=== PATIENT | female | born 1960 | race Caucasian/White ===

== ENCOUNTER 2016-06-28 10:18 | Inpatient (IN) | payer OTHER ==
--- NOTE | 2016-06-18 13:55 | HP ---
Admitting History and Physical - Primary Care Physician PCP: Vasile Weaver - Admission Chief Complaint: High risk breast cancer History of Present Illness: 55 year old postmenapausal Ashkenazi female with strong family H/O breast cancer. Her sister was recently diagnosed with a breast cancer at age 49 and has a NF1 mutation. Mammogram 06/2016 [facility] 1 showing right clip and Breast MRI 06/2016 [facility] 2. History Source: Patient Limitations to Obtaining History: No Limitations - Past Medical History Additional Past Medical History: Insomnia - Past Surgical History Past Surgical History: Yes: , Hysterectomy (TAHBSO 02/2014 4 cm benign mass colonoscopy benign), Tonsillectomy Additional Past Surgical History: mastopexy 2012 right core bx 2010 benign elbow surgery - Smoking History Smoking history: Never smoked Have you smoked in the past 12 months: No - Alcohol/Substance Use Hx Alcohol Use: Yes (social 3 per week) Home Medications - Allergies Allergies/Adverse Reactions: Allergies Allergy/AdvReac Type Severity Reaction Status Date / Time No Known Allergies Allergy Verified 06/18/16 13:55 - Home Medications Home Medications (free text): Trazadone Family Disease History - Family Disease History Family Disease History: CA: Father (Lung ca), Mother (33 breast ca/Bile duct ca 66), Sister (49 breast ca NF1 mutation) Other Family History: pat aunt Breast ca 70. Pat GM uterine ca 70. mat aunt Breast ca 40. mat GM gastric ca 60. mat cousin beast ca 50. mat 2nd cousins x2 ovarian ca 75 Physical Examination Constitutional: Yes: Well Nourished Breast(s): Yes: Other (Bilateral mastopexy healed incisions and has A cup no palpable densities or adenopathy) Problem List - Problems (1) At high risk for breast cancer Code(s): Z91.89 - [facility] PERSONAL RISK FACTORS, NOT ELSEWHERE CLASSIFIED Assessment/Plan Bilateral total mastectomies retroareolar biopsies implant and alloderm reconstruction
[2016-06-20 10:08] VITALS: BMI 18.4
[2016-06-28] MEDS ORDERED: PROMETHAZINE HCL 25 MG/1 ML VIAL IVPUSH PRN (10:56)
[2016-06-28] MEDS ORDERED: ONDANSETRON 4 MG/2 ML VIAL IVPUSH PRN (10:56)
[2016-06-28] MEDS ORDERED: LACTATED RINGERS SOLUTION 1,000 ML IV SCH (11:00)
[2016-06-28] MEDS ORDERED: BUPIVACAINE HCL/PF 2.5 MG/ML - 30 ML VIAL IJ ONE (13:20)
[2016-06-28] MEDS ORDERED: DEXAMETHASONE SOD PHOSPHATE/PF 10 MG/ML SDV ONE (13:21)
[2016-06-28] MEDS ORDERED: MIDAZOLAM HCL 2 MG/2 ML SINGLE DOSE VIAL ONE (13:22)
[2016-06-28] MEDS ORDERED: SCOPOLAMINE HYDROBROMIDE 1 PATCH PATCH.TD72 ONE (13:32)
[2016-06-28] MEDS ORDERED: GENTAMICIN SO4 80 MG/2 ML VIAL ONE (13:40)
[2016-06-28] MEDS ORDERED: LIDOCAINE 1%-EPI 1:100,000 30 ML MDV IJ ONE (13:40)
[2016-06-28] MEDS ORDERED: ROCURONIUM BROMIDE 50 MG/5 ML VIAL ONE ×2 (13:49→15:25)
[2016-06-28] MEDS ORDERED: HYDROmorphone HCL/PF 1 MG/ML VIAL (FOR PYXIS CHARGING ONLY) ONE (13:49)
[2016-06-28] MEDS ORDERED: PROPOFOL 20 ML ONE (13:49)
[2016-06-28] MEDS ORDERED: KETOROLAC TROMETHAMINE 30 MG/1 ML VIAL ONE (14:20)
[2016-06-28] MEDS ORDERED: ONDANSETRON 4 MG/2 ML VIAL ONE (14:20)
[2016-06-28] MEDS ORDERED: DEXAMETHASONE SOD PHOSPHATE 4 MG/1 ML VIAL ONE (14:20)
[2016-06-28] MEDS ORDERED: ceFAZolin SODIUM 1 GM VIAL ONE (14:20)
[2016-06-28] MEDS ORDERED: CEFOXITIN SODIUM 1 GM in DEXTROSE 5%-WATER - 100 ML IVPB ONE ×2 (14:30→22:15)
[2016-06-28] MEDS ORDERED: ONDANSETRON 4 MG/2 ML VIAL IVPB PRN (15:51)
[2016-06-28] MEDS ORDERED: ZOLPIDEM TARTRATE 5 MG TABLET PO PRN (15:51)
[2016-06-28] MEDS ORDERED: ACETAMINOPHEN 325 MG TABLET (FP) PO PRN (15:51)
[2016-06-28] MEDS ORDERED: HYDROmorphone *PCA* 10MG/50ML DISP.SYRIN PCA ONE (15:52)
[2016-06-28] MEDS ORDERED: DEXTROSE 5%-0.45% SALINE 1,000 ML IV SCH (16:00)
[2016-06-28] MEDS ORDERED: NEOSTIGMINE METHYLSULFATE 0.5 MG/ML - 10 ML MDV ONE (16:12)
[2016-06-28] MEDS ORDERED: GLYCOPYRROLATE 0.2 MG/1 ML VIAL ONE (16:12)
[2016-06-28] MEDS ORDERED: NALOXONE HCL 0.4 MG/ML VIAL ONE (16:52)
[2016-06-28] MEDS: HYDROmorphone *PCA* 10MG/50ML DISP.SYRIN PCA SCH ×2 (17:27→18:16)
[2016-06-28] MEDS ORDERED: DULoxetine HCL 30 MG CAPSULE.DR (FP) PO SCH (22:00)
[2016-06-28] MEDS: DULoxetine HCL 30 MG CAPSULE.DR (FP) PO SCH ×3 (22:34→23:36)
[2016-06-28] MEDS: traZODone HCL 50 MG TABLET (FP) PO SCH ×3 (22:34→23:36)
[2016-06-29 08:44] LABS: MCH 32.8 pg (25.7-33.7); MCHC 33.8 g/dl (32.0-36.0); MEAN CELL VOLUME 96.9 fl (80-96); MEAN PLT VOLUME 9.8 fl (7.5-11.1); PLATELET COUNT 221 K/MM3 (134-434); RDW 11.9 % (11.6-15.6); WHITE BLOOD COUNT 10.7 K/mm3 (4.0-10.0)
[2016-06-29] MEDS ORDERED: CEFOXITIN SODIUM 1 GM in DEXTROSE 5%-WATER - 100 ML IVPB SCH (09:00)
[2016-06-29] MEDS ORDERED: DOCUSATE SODIUM 100 MG CAPSULE (FP) PO PRN (09:20)
[2016-06-29] MEDS ORDERED: OXYCODONE/APAP 5/325MG COMBO TABLET PO PRN (09:21)
--- NOTE | 2016-06-29 09:26 | PN ---
Progress Note, Physician Chief Complaint: s/p bilateral mastectomy with reconstruction POD#1 History of Present Illness: Patient seen this am and reports good pain control. Tolerating po well. Voiding normally. - Current Medication List Current Medications: Active Medications Acetaminophen (Tylenol -) 650 mg PO Q4H PRN PRN Reason: FEVER Docusate Sodium (Colace -) 100 mg PO BID PRN PRN Reason: CONSTIPATION Duloxetine HCl (Cymbalta -) 60 mg PO HS [facility] Last Admin: 06/28/16 23:36 Dose: 60 mg Fentanyl (Sublimaze Injection -) 50 mcg IVPUSH [id number] PRN PRN Reason: PAIN Stop: 07/01/16 10:57 Lactated Ringer's (Lactated Ringers Solution) 1,000 mls @ 125 mls/hr IV ASDIR MATTHEW Dextrose/Sodium Chloride (D5-1/2ns -) 1,000 mls @ 100 mls/hr IV ASDIR MATTHEW Cefoxitin Sodium 1 gm/ (Dextrose) 100 mls @ 200 mls/hr IVPB Q8H-IV MATTHEW Ondansetron HCl (Zofran Injection) 4 mg IVPB Q6H PRN PRN Reason: NAUSEA AND/OR VOMITING Oxycodone/Acetaminophen (Percocet 5/325 -) 2 combo PO Q6H PRN PRN Reason: PAIN LEVEL 6-10 Trazodone HCl (Desyrel -) 50 mg PO HS [facility] Last Admin: 06/28/16 23:36 Dose: 50 mg Zolpidem Tartrate (Ambien -) 5 mg PO HS PRN PRN Reason: Insomnia - Objective Vital Signs: Vital Signs Temperature 98.3 F 06/29/16 06:00 Pulse Rate 67 06/29/16 06:00 Respiratory Rate 18 06/29/16 06:00 Blood Pressure 90/51 06/29/16 06:00 O2 Sat by Pulse Oximetry (%) 96 06/29/16 06:48 Constitutional: Yes: Well Nourished, Calm Breast(s): Yes: Other (bilateral flaps with good color. Nipple/areola complex with good color. Mild ecchymosis noted. DAVID X4 with serosanginous discharge noted.) Labs: CBC, BMP 06/29/16 07:00 Problem List - Problems (1) At high risk for breast cancer Assessment/Plan: Plan: DC RN INTERNSHIP in the pm and transition to po meds. Teach DAVID monitoring. OOB with assistance. Make appt with Dr. Weaver and Dr. Berrios next week. Code(s): Z91.89 - [facility] PERSONAL RISK FACTORS, NOT ELSEWHERE CLASSIFIED
[2016-06-29] MEDS: CEFOXITIN SODIUM 1 GM in DEXTROSE 5%-WATER - 100 ML IVPB SCH ×2 (10:55→17:33)
--- NOTE | 2016-06-29 12:15 | PN ---
Progress Note (short form) - Note Progress Note: 55F POD1 s/p b/l prophylactic mastectomy under GA-ETT with PECS blocks and dilaudid IV FERMENTER for post-operative pain control. Pt states pain is well contolled, AVSS, reports no anesthetic complications. FERMENTER to be d/c'd later today and pt will be switched to oral pain medication.
[2016-06-29] MEDS: diphenhydrAMINE HCL 25 MG CAPSULE (FP) PO PRN ×2 (13:25→21:26)
[2016-06-29] MEDS: OXYCODONE/APAP 5/325MG COMBO TABLET PO PRN ×2 (16:20→21:26)
[2016-06-29] MEDS ORDERED: PT OWN MED DRAWER 7, Y5N ONE (17:08)
--- NOTE | 2016-06-29 20:57 | OP ---
DATE OF OPERATION: 06/28/2016 PREOPERATIVE DIAGNOSIS: High risk for breast cancer with a strong family history. POSTOPERATIVE DIAGNOSIS: High risk for breast cancer with a strong family history. PROCEDURE: Bilateral total nipple-sparing mastectomies through an inframammary approach with bilateral direct implant reconstruction with AlloDerm. ANESTHESIA: General endotracheal anesthesia. PRIMARY SURGEON: Paul Bhakta MD STOVE INSTALLER: BUFFY Whipple PRIMARY SURGEON FOR THE BILATERAL DIRECT IMPLANT RECONSTRUCTION: Paul Berrios MD with his life enrichment assistant, BUFFY Briscoe. COMPLICATIONS: There were no complications. Briefly, the patient is a 55-year-old G3, P3 postmenopausal white female of Ashkenazi-[place] descent. She has a strong family history with a mother who had breast cancer at age 33 and from bile duct cancer at age 66. Her sister had breast cancer at age 49. A maternal aunt, maternal cousin and two maternal second cousins had cancer. Her maternal grandmother had gastric cancer. Her father had lung cancer. A paternal aunt had breast cancer and her paternal grandmother had uterine cancer. The patient had a recent mammography and MRI in June 2016 which was negative. She was seen in consultation regarding risk reduction for breast cancer. She already had a prophylactic JUANIS-BSO performed in 2013. She had a prior mastopexy in 2011 and had a right breast biopsy in 2009 which was benign. The patient was told she could undergo genetic testing but she did not want to go forward with genetic testing. She felt her risk was very high and wanted to go forward with risk reduction mastectomy. I spoke to her about all risks and complications of the procedure including risks of skin necrosis, nipple loss, hematoma, and infection and she wanted to go forward with the surgery. She was felt to be high risk and was seen by a plastic surgeon preoperatively. She was felt to be a good candidate for direct implant reconstruction. She was brought in for the procedure on June 28, 2016. In the holding area, site verification was made and informed consent was obtained. She was marked preoperatively by the plastic surgeon. She did sign consent for the nipple-sparing mastectomy registry program. She was brought into the operating room and laid on the OR table in the supine position. Venodynes were placed on the lower extremities. She did receive a gram of Mefoxin prior to incision. Both breasts were sterilely prepped and draped in the usual fashion. Inframammary incisions were marked out bilaterally, about 8 cm in length, in the inframammary folds symmetrically bilaterally. The left mastectomy was performed first. An incision was made in the inframammary fold. The skin edges were everted and the breast was retracted inferiorly using [place] clamps. The skin flap was raised using the PEAK radiofrequency device superiorly to the level of the clavicle, medially to the level of the sternum, laterally to the level of the latissimus and inferiorly to the level of the inframammary fold. The breast was taken down off the pectoralis major muscle from inferomedial to superolateral and completely removed intact. It was oriented with a long lateral/short superior suture and weighed to allow for appropriate cosmetic result. The skin flaps were trimmed for good cosmetic result. A retroareolar biopsy is taken underneath the left nipple-areolar complex, sent for frozen section, came back negative, so the left nipple was spared. The wound was copiously irrigated. At this point, the right breast was approached. Again, an inframammary incision was made symmetrically to the right inframammary incision. The skin edge was everted and then the breast was retracting inferiorly using [place] clamps. The skin flap was raised using the PEAK radiofrequency device superiorly to the level of the clavicle, medially to the level of the sternum, laterally to the level of the latissimus and inferiorly to the level of the inframammary fold. The breast was taken down off the pectoralis major muscle using electrocautery from inferomedial to superolateral and completely removed intact. It was oriented with a long lateral/short superior suture and weighed to allow for appropriate cosmetic result. Hemostasis was achieved and the skin flaps were trimmed for good cosmetic result. A retroareolar biopsy was taken underneath the right nipple-areolar complex and sent for frozen section, came back negative and so the right nipple was spared. Hemostasis was achieved and the wound was copiously irrigated with warm sterile saline. The SPY skin perfusion device was used and there was good skin perfusion in both skin flaps and even into the nipple-areolar complexes, even despite her prior mastopexy surgery in 2011. At this point, Dr. Berrios performed bilateral direct implant reconstructions using AlloDerm, which was sutured into the inferolateral aspects of both pectoralis major muscles. Two Rm drains were placed around each implant and brought through separate stab incisions on the lateral skin flaps and secured in place using 3-0 nylon suture. Wounds were all closed by plastic surgery using interrupted 3-0 deep dermal PDS suture and a running 4-0 subcuticular PDS suture. The Rm drains were placed on DAVID soft bulb suction and Mastisol and Steri-Strips were applied over the wounds. She was placed in a surgical bra postoperatively. All sponge and needle counts were correct at the end of the case. She was extubated at the end of the case. ESTIMATED BLOOD LOSS: About 100 mL She was hemodynamically stable throughout. The patient will be recovered in the postanesthesia care unit and then will be admitted postoperatively for wound and pain management. PAUL BHAKTA M.D. [id number]
[2016-06-29] MEDS: traZODone HCL 50 MG TABLET (FP) PO SCH (21:27)
[2016-06-29] MEDS: DULoxetine HCL 30 MG CAPSULE.DR (FP) PO SCH (21:27)
[2016-06-30] MEDS ORDERED: PT OWN MED DRAWER 7, Y5N ONE (01:32)
[2016-06-30] MEDS: CEFOXITIN SODIUM 1 GM in DEXTROSE 5%-WATER - 100 ML IVPB SCH ×2 (01:50→10:00)
[2016-06-30] MEDS: OXYCODONE/APAP 5/325MG COMBO TABLET PO PRN ×2 (05:29→09:00)
[2016-06-30 07:03] VITALS: BP 109/60; PULSE 56; TEMP 98.9
--- NOTE | 2016-06-30 11:37 | DS ---
Physical Examination Vital Signs: Vital Signs Temperature 98.9 F 06/30/16 06:00 Pulse Rate 56 L 06/30/16 06:00 Respiratory Rate 19 06/30/16 06:00 Blood Pressure 109/60 06/30/16 06:00 O2 Sat by Pulse Oximetry (%) 100 06/30/16 05:33 Constitutional: Yes: Well Nourished, No Distress Wound/Incision: Yes: Dressing Dry and Intact (Skin flaps and nipples viable. DAVID drains functioning, serosanguineous effluent.) Labs: CBC, BMP 06/29/16 07:00 Discharge Summary Reason For Visit: GENETIC SUSCEPTIBILITY Current Active Problems At high risk for breast cancer (Acute) Condition: Good - Instructions Diet, Activity, Other Instructions: BREAST SURGERY INSTRUCTIONS Rafael Weaver M.D., DIANELYS Weaver M.D., DIANELYS Vaughan M.D., FACS 1. Please call the office at to make a follow up appointment with your surgeon. This number can be also used for any urgent issues you may have. 2. Call us immediately if any of the following occur: *Bleeding from the incision or drain site (a small amount is normal) *Fever or chills *Redness and worsening tenderness around the surgical site *Drainage of pus or fluid from the incision or drain site 3. You may change the surgical dressing two (2) days after your surgery, and may shower then. If you have drains, you may shower after they have been removed, until then take a sponge bath. 4. It is normal for there to be some bruising and tenderness around the surgical site, and the breast may also be firm in this area. 5. Please wear a comfortable bra (sports or surgical bra) all day and all night until your first follow-up visit with your surgeon. 6. The pain medicine you have been prescribed may make you constipated; make sure you drink plenty of water. You may use an over the counter laxative if needed. 7. You may resume your normal diet after surgery, although you may want to avoid rich foods for the first twenty-four (24) hours after surgery. Alcoholic drinks should be avoided while taking the prescribed pain medicine. 8. You may resume normal activities as long as there is no discomfort, but do not do upper body exercises until after your follow-up appointment. Do not lift anything heavier than a large phone book. You may resume driving once you have stopped taking the prescribed pain medicine and feel comfortable doing arm movements. Disposition: HOME - Home Medications Comprehensive Discharge Medication List: Ambulatory Orders Biotin 10,000 mcg PO DAILY 06/20/16 Cholecalciferol (Vitamin D3) [Vitamin D3] 5,000 unit PO DAILY 06/20/16 Duloxetine HCl [Cymbalta] 30 mg PO HS 06/20/16 Magnesium Oxide [Magnesium] 500 mg PO HS 06/20/16 Temazepam [Restoril] 7.5 mg PO HS PRN 06/20/16 Trazodone HCl [Desyrel -] 50 mg PO HS 06/20/16 Turmeric Root Extract [Turmeric] 500 mg PO DAILY 06/20/16 Vitamin B Complex [B Complex] 1 each PO DAILY 06/20/16 Diazepam [Valium] 5 mg PO Q6H PRN #20 tablet MDD 4 06/30/16
--- NOTE | 2016-07-01 11:53 | OP ---
DATE OF OPERATION: 06/28/2016 This is a combined dictation with Dr. Weaver. PREOPERATIVE DIAGNOSES: 1. Bilateral acquired chest wall deformity status post bilateral mastectomy (611.89). 2. Personal history of genetic carcinoma. POSTOPERATIVE DIAGNOSES: 1. Bilateral acquired chest wall deformity status post bilateral mastectomy (611.89). 2. Personal history of genetic carcinoma. PROCEDURE: 1. Right immediate breast reconstruction utilizing immediate insertion of silicone breast implant and DermACELL reconstruction. 2. Left immediate breast reconstruction utilizing immediate insertion of silicone breast implant and DermACELL reconstruction. 3. Intravenous injection of isocyanide green dye and intraoperative diagnostic evaluation of non-coronary intraoperative fluorescein vascular angiography x 2. SURGEON: Paul Berrios MD GLASSWARE SELECTOR: BUFFY Key ANESTHESIA: General. OPERATIVE PROCEDURE IN DETAIL: The patient was taken to the operating room. After induction of general anesthesia in the supine position, both arms were extended and padded. Venodyne boots were placed. The entire chest wall was painted with ChloraPrep solution over its entire extent, and sterile drapes were placed in the usual fashion. The markings, which had been made in the standing position preoperatively, were reoutlined with the patient's knowledge. Time-out procedure was performed. Attention was turned by Dr. Weaver to the mastectomies. Bilateral inframammary incisions were made and Dr. Weaver performed mastectomies. This will be dictated under separate cover. Upon completion of the mastectomies, the wounds were copiously irrigated and attention was turned to the right breast. A subpectoral dissection was begun on the right breast, superiorly from the 2nd rib, medially to the sternal fibers, and down to the inframammary fold, elevating the pectoralis major muscle from its insertion. At this point, an 8.0 x 16.0 sheet of DermACELL was brought into the field and sutured superiorly along the pectoralis major muscle after rehydration. This was carried along the lateral mammary fold and down the side of the breast reconstruction. At this point, a Natrelle 410 style FF 290-mL implant was chosen. The left breast tissue removed was 190 gm, and the right breast approximately 172 gm. She had AlloDerm Contour Perforated medium sheets placed bilaterally. This implant was placed and then sutured with 3-0 Vicryl suture continued along the inframammary fold, completely covering the implant itself. The exact same procedure was carried out symmetrically on the opposite breast, also placing a Natrelle 410 style FF 290-mL implant in the same subpectoral pocket. Good symmetry was seen in the sitting position. After the implants were in place, the patient was injected with 10 mL of isocyanide green dye, and the Spy imaging system was brought into the field. The dye flowed to the right and left breasts and the nipple areolar complexes, and the entire skin flaps were evaluated and seen to be viable with good blood flow. Two Gregorio-Cameron drains were brought out through separate stab wounds laterally. The Smart Infuser pump catheter was inserted medially and into the subpectoral position. Both wounds were closed symmetrically using 3-0 PDS suture on the deep tissue, 3-0 in a deep dermal fashion, and 4-0 in a subcuticular fashion. Both wounds were dressed sterilely with Mastisol and Steri-Strips with a surgical bra and a compression strap. The patient tolerated the procedure well. She was awakened, extubated and transferred to the recovery room in satisfactory condition. The assistant principal was present during the entire portion of the operation and closure. PAUL BERRIOS M.D. [id number]
--- NOTE | 2016-07-02 15:16 | PATH ---
Surgical Pathology Report Patient Name: OTTO SUAREZ [facility]. Rec. #: [id number] /Age/Gender: 1960 (Age: 55) / F Account: [id number] Location: [facility] MED-SURG Taken: 06/28/2016 Received: 06/28/2016 Reported: 07/02/2016 Physicians: Vasile Weaver M.D. Specimen(s) Received A: RIGHT RETROAREOLAR BIOPSY. FS B: LEFT RETROAREOLAR BIOPSY. FS C: RIGHT BREAST D: LEFT BREAST Clinical History High risk with strong history Bilateral prophylactic mastectomy Prior mastopexy surgery Intraoperative Consult Diagnosis A. Left retroareolar biopsy, frozen section: Negative for malignancy. B. Right retroareolar biopsy, frozen section: Negative for malignancy. Kami Thompson 06/28/16 Final Diagnosis A. RETROAREOLA, LEFT, BIOPSY (FS): BENIGN BREAST TISSUE; NEGATIVE FOR MALIGNANCY. B. RETROAREOLA, RIGHT, BIOPSY (FS): BENIGN BREAST TISSUE; NEGATIVE FOR MALIGNANCY. C. BREAST, RIGHT, NIPPLE-SPARING MASTECTOMY: BENIGN BREAST TISSUE SHOWING PROLIFERATIVE FIBROCYSTIC CHANGES. D. BREAST, LEFT, NIPPLE-SPARING MASTECTOMY: BENIGN BREAST TISSUE SHOWING FIBROCYSTIC CHANGES, SCLEROSING ADENOSIS AND FIBROADENOMATOID CHANGES. Electronically Signed Adriane Montalvo M.D. Gross Description A. Received fresh for frozen section labeled "left breast retroareolar biopsy," is a 0.5 x 0.4 x 0.2 cm portion of red and yellow soft tissue. A frozen section is performed on the tissue. The frozen section residue is entirely submitted in one cassette. B. Received fresh for frozen section labeled "right breast right retroareolar biopsy," is a 1.5 x 1.0 x 0.3 cm portion of red and yellow soft tissue. A frozen section is performed on the tissue. The frozen section residue is entirely submitted in one cassette. C. Received in formalin, labeled "right mastectomy," is a 171 gram, 13.0 x 11.0 x 2.4 cm. right mastectomy specimen with a short suture marking the superior aspect and a long suture marking the lateral aspect of the specimen, per the surgeon. There is no skin or nipple present. The deep margin is inked black and the anterior soft tissue margin is inked blue. The specimen is serially sectioned from lateral to medial. Sectioning reveals a taylor metallic clip in the upper outer quadrant (UOQ). The clip is surrounded by firm fibrous tissue. The remaining breast parenchyma displays multifocal dense, white fibrous tissue. No definitive masses are identified. Heel Sprayer First sections are submitted in 16 cassettes as follows: 1-UOQ section with metallic clip; 2-3-UOQ fibrous tissue surrounding area of metallic clip; 1-1-oppqablwgy uninvolved UOQ tissue; 6-8-lower outer quadrant; 9-12-upper inner quadrant; 13-14-lower inner quadrant; 15-anterior soft tissue margin; 16-deep margin. Time to formalin fixation: 45 minutes Total formalin fixation time: Approximately 26 hours. D. Received in formalin, labeled "left mastectomy," is a 189 gram, 14.0 x 12.0 x 2.4 cm. left mastectomy specimen with a short suture marking the superior aspect and a long suture marking the lateral aspect of the specimen, per the surgeon. There is no skin or nipple present. The deep margin is inked black and the anterior soft tissue margin is inked blue. The specimen is serially sectioned from medial to lateral. Sectioning reveals abundant dense, white fibrocystic tissue. No definitive masses are identified. Heel Sprayer First sections are submitted in 15 cassettes as follows: 1-3-upper outer quadrant; 4-6-lower outer quadrant; 7-9-upper inner quadrant; 10-13-lower inner quadrant; 14-anterior soft tissue margin; 15-deep margin. Time to formalin fixation: 35 minutes Total formalin fixation time: Approximately 26 hours. 06/29/201606/29/2016
== END 2016-06-30 13:10 | disposition home or self-care (01) | DRG 585 ==
LOC: FM/S 11:26
PROVIDERS: ADMIT Surgery Surgical Oncology; ATTEND Surgery Surgical Oncology
PROC: 0HTV0ZZ Resection of Bilateral Breast, Open Approach (ICD-10-PCS; principal; 2016-06-28 13:30)
PROC: 0HRV0JZ Replacement of Bilateral Breast with Synthetic Substitute, Open Approach (ICD-10-PCS; 2016-06-28 13:30)
DX: Z40.01 Encounter for prophylactic removal of breast (principal); Z80.3 Family history of malignant neoplasm of breast
CPT/HCPCS: 36415; 85027; 88307-TC; 88331-TC; 94760